=== PATIENT | female | born 1985 | race Caucasian/White ===

== ENCOUNTER 2016-09-12 20:55 | Emergency (ER) | payer BC ==
[~2016-09-12] VITALS: Ht 162.5 cm; Wt 113.4 kg
[~2016-09-12 20:55] MED LIST: ANTIVERT25 MG PO; BENTYL20 MG PO; GLUCOPHAGE500 MG PO; NAPROSYN500 MG PO; TYLENOL325 M2 PO; VICODIN 5/500 505 MG PO; ZOFRAN4 MG PO
== END 2016-09-12 22:20 | disposition home or self-care (01) ==
LOC: ED 20:55
DX: S49.92XA Unspecified injury of left shoulder and upper arm, initial encounter (principal); F17.200 Nicotine dependence, unspecified, uncomplicated; V09.20XA Pedestrian injured in traffic accident involving unspecified motor vehicles, initial encounter; Y93.89 Activity, other specified; Y92.9 Unspecified place or not applicable; Y99.9 Unspecified external cause status

== ENCOUNTER → 2017-06-24 | Outpatient (CLI) | payer BC ==
[2017-06-24 07:59] LABS: BASO % 0.6 % (0.0-1.0); EOS # 0.2 10*3/uL (0.0-0.4); EOS % 2.3 % (1.0-4.0); HEMATOCRIT 39.3 % (37.0-47.0); HEMOGLOBIN 12.4 g/dl (12.0-16.0); LYMPH # 2.3 10*3/uL (1.3-4.4); LYMPH % 35.4 % (27.0-41.0); MEAN CORPUSCULAR HGB 25.6 pg (27.0-31.0); MEAN CORPUSCULAR HGB CONC 31.6 g/dl (33.0-37.0); MEAN PLATELET VOLUME 10.6 fl (9.6-12.3); MONO # 0.4 10*3/uL (0.1-1.0); MONO % 5.9 % (3.0-9.0); NEUT # 3.6 10*3/uL (2.3-7.9); NEUT % 55.6 % (47.0-73.0); PLATELET COUNT AUTOMATED 268 10*3/uL (130-400); RED BLOOD COUNT 4.85 10*6/uL (4.10-5.10); RED CELL DISTRI WIDTH 15.8 % (0-14.5); WHITE BLOOD COUNT 6.5 10*3/uL (4.8-10.8)
[2017-06-24 08:28] LABS: ALBUMIN 3.3 gm/dl (3.1-4.5); BUN 8 mg/dl (7-24); CHLORIDE 103 mmol/L (98-107); CHOLESTEROL 221 mg/dL (<200); CREATININE 0.78 mg/dL (0.55-1.02); POTASSIUM 4.1 mmol/L (3.5-5.1); SGOT/AST 30 IU/L (3-35); SGPT/ALT 49 U/L (12-78); SODIUM 136 mmol/L (136-145)
[2017-06-24 08:37] LABS: ALKALINE PHOSPHATASE 72 U/L (45-117); HDL CHOLESTEROL 33 mg/dl (40-60); LDL CHOLESTEROL 122 mg/dL (9-159); TOTAL PROTEIN 7.7 gm/dL (6.4-8.2); TRIGLYCERIDES 329 mg/dl (<150); VLDL CHOLESTEROL 66 mg/dL (6-40)
== END | disposition home or self-care (01) ==
LOC: LAB 07:04
PROVIDERS: Nurse Practitioner Family
DX: E03.9 Hypothyroidism, unspecified (principal); E78.4 Other hyperlipidemia

== ENCOUNTER → 2019-01-29 | Outpatient (CLI) | payer BC | END | disposition home or self-care (01) | LOC: US 12-29 07:30 | DX: K76.0 Fatty (change of) liver, not elsewhere classified (principal); R74.8 Abnormal levels of other serum enzymes; Z90.49 Acquired absence of other specified parts of digestive tract ==

== ENCOUNTER → 2019-11-17 | Outpatient (CLI) | payer BC | END | disposition home or self-care (01) | LOC: US 07:19 | DX: E03.9 Hypothyroidism, unspecified (principal); E04.1 Nontoxic single thyroid nodule ==

== ENCOUNTER → 2020-01-24 | Outpatient (CLI) | payer BC ==
[2020-01-24 08:52] LABS: FREE T4 1.13 ng/dl (0.76-1.46); THYROID STIM HORMONE (HS) 3.77 uIU/ml (0.358-4.75)
== END | disposition home or self-care (01) ==
LOC: LAB 07:13
PROVIDERS: ATTEND Internal Medicine Endocrinology, Diabetes & Metabolism
DX: E03.9 Hypothyroidism, unspecified (principal)

== ENCOUNTER → 2020-03-20 | Outpatient (CLI) | payer BC | END | disposition home or self-care (01) | LOC: LAB 08:41 | PROVIDERS: ATTEND Internal Medicine Endocrinology, Diabetes & Metabolism | DX: E66.01 Morbid (severe) obesity due to excess calories (principal) ==

== ENCOUNTER → 2020-03-21 | Outpatient (CLI) | payer BC | END | disposition home or self-care (01) | LOC: LAB 08:00 | PROVIDERS: ATTEND Internal Medicine Endocrinology, Diabetes & Metabolism | DX: E66.01 Morbid (severe) obesity due to excess calories (principal) ==

== ENCOUNTER → 2022-04-02 | Outpatient (CLI) | payer BC ==
[2022-04-02 07:45] LABS: BASO % 0.4 % (0.0-1.0); EOS # 0.1 10*3/uL (0.0-0.4); EOS % 1.3 % (1.0-4.0); HEMATOCRIT 39.5 % (37.0-47.0); LYMPH # 1.8 10*3/uL (1.3-4.4); LYMPH % 25.3 % (27.0-41.0); MEAN CELL VOLUME 77.6 fl (81.0-99.0); MEAN CORPUSCULAR HGB 24.2 pg (27.0-31.0); MEAN CORPUSCULAR HGB CONC 31.1 g/dl (33.0-37.0); MEAN PLATELET VOLUME 9.7 fl (9.6-12.3); MONO # 0.4 10*3/uL (0.1-1.0); MONO % 5.3 % (3.0-9.0); NEUT # 4.9 10*3/uL (2.3-7.9); NEUT % 67.6 % (47.0-73.0); PLATELET COUNT AUTOMATED 272 10*3/uL (130-400); RED BLOOD COUNT 5.09 10*6/uL (4.10-5.10); RED CELL DISTRI WIDTH 16.1 % (0-14.5); WHITE BLOOD COUNT 7.2 10*3/uL (4.8-10.8)
[2022-04-02 08:55] LABS: BUN 14 mg/dl (7-24); CHLORIDE 106 mmol/L (98-107); CHOLESTEROL 226 mg/dL (<200); CREATININE 0.81 mg/dL (0.55-1.02); POTASSIUM 4.2 mmol/L (3.5-5.1); SODIUM 135 mmol/L (136-145)
[2022-04-02 08:56] LABS: ALKALINE PHOSPHATASE 62 U/L (45-117); LDL CHOLESTEROL 113 mg/dL (9-159); SGOT/AST 33 IU/L (3-35); SGPT/ALT 61 U/L (12-78); TOTAL PROTEIN 7.6 gm/dL (6.4-8.2); TRIGLYCERIDES 381 mg/dl (<150)
[2022-04-03 10:06] LABS: CREATININE,URINE 74.1 mg/dL (Not Estab.)
== END | disposition home or self-care (01) ==
LOC: LAB 07:10
PROVIDERS: ATTEND Nurse Practitioner Family
DX: E11.65 Type 2 diabetes mellitus with hyperglycemia (principal); E78.2 Mixed hyperlipidemia; E55.9 Vitamin D deficiency, unspecified; E03.9 Hypothyroidism, unspecified; I10 Essential (primary) hypertension

== ENCOUNTER → 2022-06-26 | Outpatient (CLI) | payer BC | END | disposition home or self-care (01) | LOC: US 02:38 | PROVIDERS: ATTEND Nurse Practitioner Family | DX: D25.1 Intramural leiomyoma of uterus (principal) ==

== ENCOUNTER → 2022-07-08 | Outpatient (CLI) | payer BC | END | disposition home or self-care (01) | LOC: RAD 12:26 | PROVIDERS: ATTEND Nurse Practitioner Family | DX: J18.9 Pneumonia, unspecified organism (principal); J40 Bronchitis, not specified as acute or chronic ==

== ENCOUNTER → 2022-08-12 | Outpatient (CLI) | payer BC ==
[2022-08-12 12:50] LABS: BASO % 0.4 % (0.0-1.0); EOS # 0.1 10*3/uL (0.0-0.4); EOS % 0.7 % (1.0-4.0); HEMATOCRIT 38.7 % (37.0-47.0); LYMPH # 2.4 10*3/uL (1.3-4.4); LYMPH % 28.5 % (27.0-41.0); MEAN CORPUSCULAR HGB 22.7 pg (27.0-31.0); MEAN CORPUSCULAR HGB CONC 30.2 g/dl (33.0-37.0); MONO # 0.5 10*3/uL (0.1-1.0); MONO % 6.3 % (3.0-9.0); NEUT # 5.4 10*3/uL (2.3-7.9); NEUT % 63.9 % (47.0-73.0); PLATELET COUNT AUTOMATED 270 10*3/uL (130-400); RED BLOOD COUNT 5.16 10*6/uL (4.10-5.10); RED CELL DISTRI WIDTH 16.8 % (0-14.5); WHITE BLOOD COUNT 8.4 10*3/uL (4.8-10.8)
[2022-08-12 13:05] LABS: ALKALINE PHOSPHATASE 61 U/L (46-116); BUN 7 mg/dl (9-23); CHLORIDE 104 mmol/L (98-107); POTASSIUM 4.3 mmol/L (3.4-5.1); SGPT/ALT 50 U/L (10-49); TOTAL PROTEIN 7.4 gm/dL (6.0-8.0)
== END | disposition home or self-care (01) ==
LOC: LAB 12:29
PROVIDERS: ATTEND Nurse Practitioner Family
DX: R05.9 Cough, unspecified (principal); R06.2 Wheezing; R09.81 Nasal congestion; R51.9 Headache, unspecified; R68.83 Chills (without fever)

== ENCOUNTER → 2023-03-10 | Outpatient (CLI) | payer BC | END | disposition home or self-care (01) | LOC: LAB 10:45 | PROVIDERS: ATTEND Nurse Practitioner Family | DX: E78.2 Mixed hyperlipidemia (principal) ==

== ENCOUNTER 2023-07-08 10:35 | Emergency (ER) | payer BC ==
[~2023-07-08] VITALS: Ht 162.5 cm; Wt 122.5 kg
== END 2023-07-08 14:59 | disposition left against medical advice (07) ==
LOC: ED 10:35
DX: R11.2 Nausea with vomiting, unspecified (principal); R19.7 Diarrhea, unspecified; Z53.21 Procedure and treatment not carried out due to patient leaving prior to being seen by health care provider